=== PATIENT | male | born 1990 | race Caucasian/White ===

== ENCOUNTER 2024-02-21 09:55 | Day surgery (SDC) | payer OTHER ==
[~2024-02-21] VITALS: Ht 165.1 cm; Wt 71.2 kg
[~2024-02-21 09:55] MED LIST: THERTAB52 PO
[2024-02-21] MEDS: LR 1,000 ML IV SCH (10:33)
[2024-02-21] MEDS ORDERED: ONDANSETRON 4MG 2ML VIAL As Ordered ONE (11:16)
[2024-02-21] MEDS ORDERED: MIDAZOLAM INJ 2MG/2ML VIAL As Ordered ONE (11:16)
[2024-02-21] MEDS ORDERED: SUGAMMADEX SODIUM 500 MG/5 ML VIAL (BRIDION) As Ordered ONE (11:16)
[2024-02-21] MEDS ORDERED: LIDOCAINE 2% 100MG/5ML SDV (FOR ANES.) As Ordered ONE (11:16)
[2024-02-21] MEDS ORDERED: ROCURONIUM BROMIDE 50MG/5ML VIAL As Ordered ONE (11:16)
[2024-02-21] MEDS ORDERED: fentaNYL 100 MCG/2 ML INJECTION As Ordered ONE (11:16)
[2024-02-21] MEDS ORDERED: ACETAMINOPHEN 1000MG 100ML IV BAG As Ordered ONE (11:16)
[2024-02-21] MEDS ORDERED: propofoL 200 MG/20 ML VIAL As Ordered ONE (11:16)
[2024-02-21] MEDS: LIDOCAINE W/EPINEPHRINE 1% 20ML VIAL As Ordered ONE (11:20)
[2024-02-21] MEDS ORDERED: ONDANSETRON 4MG 2ML VIAL IV PRN (11:40)
[2024-02-21] MEDS ORDERED: oxyCODONE 5MG TAB PO PRN (11:40)
[2024-02-21] MEDS ORDERED: HYDROMORPHONE HCL 0.5 MG/ 0.5 ML SYRINGE IV PRN (11:40)
[2024-02-21] MEDS ORDERED: fentaNYL 100 MCG/2 ML INJECTION IV PRN (11:40)
[2024-02-21] MEDS ORDERED: LR 1,000 ML IV SCH (11:40)
[2024-02-21 13:10] VITALS: BP 150/93; TEMP 98.4; O2SAT 98
[2024-02-22] MEDS ORDERED: UNRESOLVED CLARIFICATION ENTRY XX SCH (00:01)
== END 2024-02-21 13:10 | disposition home or self-care (01) ==
LOC: M SDC 09:55
PROVIDERS: ATTEND Dentist Oral and Maxillofacial Surgery
DX: K02.9 Dental caries, unspecified (principal); Z88.0 Allergy status to penicillin
CPT/HCPCS: 88300; D7210; J0131; J1100; J2250; J2405; J3010

== ENCOUNTER → 2024-04-10 | Outpatient (REF) | payer OTHER | LOC: M SMT 13:30 | PROVIDERS: ATTEND Urology | DX: Z30.2 Encounter for sterilization (principal) ==

== ENCOUNTER → 2024-06-10 | Outpatient (REF) | payer OTHER ==
[2024-06-10 09:34] LABS: SEMEN APPEARANCE OPAQUE (OPAQUE)
[2024-06-10 09:35] LABS: SEMEN VISCOSITY LIQUID (LIQUID); SEMEN VOLUME 2.1 ml (2.0-5.0); WBC CONCENTRATION <=1 M/ml (<=1 M/ml)
== END ==
LOC: M SMT 09:02
PROVIDERS: ATTEND Urology
DX: Z30.8 Encounter for other contraceptive management (principal)